=== PATIENT | female | born 1965 | race Caucasian/White ===

== ENCOUNTER → 2017-08-03 | Outpatient (CLI) | payer OTHER | END | disposition home or self-care (01) | LOC: KCIC DEXA 15:18 | DX: Z12.31 Encounter for screening mammogram for malignant neoplasm of breast (principal); Z13.820 Encounter for screening for osteoporosis; M85.88 Other specified disorders of bone density and structure, other site | CPT/HCPCS: 77067; 77080 ==

== ENCOUNTER → 2017-08-18 | Outpatient (CLI) | payer OTHER | END | disposition home or self-care (01) | LOC: KCIC US 12:16 | DX: R92.8 Other abnormal and inconclusive findings on diagnostic imaging of breast (principal) | CPT/HCPCS: 76641 ==

== ENCOUNTER → 2017-08-26 | Day surgery (SDC) | payer OTHER ==
[~2017-08-26] MED LIST: LIDOCAINE 1% PF 2 ML VIAL. ID; LIDOCAINE 2% PF Vial for OR 5 ML VIAL.; MORPHINE SULFATE 2 MG/ML DISP.SYRIN. IV; ONDANSETRON PF 4 MG/2 ML VIAL. IV; PROCHLORPERAZINE 10 MG/2 ML VIAL. IV; PROPOFOL 20 ML IV; fentaNYL PF VIAL 100 MCG/2 ML VIAL IV
[2017-08-26] MEDS: IV RINGERS,LACTATED 1000ML 1,000 ML IV (08:03)
== END | disposition home or self-care (01) ==
LOC: ENDOS 07:14
DX: Z12.11 Encounter for screening for malignant neoplasm of colon (principal); K64.0 First degree hemorrhoids; Z98.84 Bariatric surgery status; Z90.710 Acquired absence of both cervix and uterus; Z90.79 Acquired absence of other genital organ(s); Z90.721 Acquired absence of ovaries, unilateral; Z98.890 Other specified postprocedural states
CPT/HCPCS: 45378; J2001; J2704

== ENCOUNTER → 2018-02-24 | Outpatient (CLI) | payer OTHER ==
[2017-08-26 09:35] VITALS: BP 117/65
[~2018-02-24] MED LIST changes: +CALC-614 PO; +CYAN250012 PO; -LIDOCAINE 1% PF 2 ML VIAL. ID; -LIDOCAINE 2% PF Vial for OR 5 ML VIAL.; -MORPHINE SULFATE 2 MG/ML DISP.SYRIN. IV; +MULT1TAB52 PO; -ONDANSETRON PF 4 MG/2 ML VIAL. IV; -PROCHLORPERAZINE 10 MG/2 ML VIAL. IV; -PROPOFOL 20 ML IV; -fentaNYL PF VIAL 100 MCG/2 ML VIAL IV
--- NOTE | 2018-02-24 15:53 | KCIC ---
Exam performed: Ultrasound right breast and axilla. HISTORY: Follow-up abnormality seen in the right breast DATE OF SERVICE: 02/24/2018. Comparison made to a right breast ultrasound from 08/18/2017. Discussion: Previously seen 1.1 cm fibroadenoma at 9:30 o'clock position in the right breast is no longer visualized. No additional solid or cystic mass lesions are seen. Normal-appearing lymph nodes are seen in the right axilla. IMPRESSION: Previously seen fibroadenoma in the right breast at 9:30 o'clock position is not definitely visualized. No abnormal right axillary lymph nodes are identified. Patient may return to her annual screening mammography in 6 months. BI-RADS Category 2: Benign. Patient was entered into the reminder system using [employer] with a target due date for next screening mammogram "Our facility is accredited by the [employer] Mammography Program." Electronically signed by: Rebecca Akins MD (02/24/2018 3:49 PM) [id number]
== END | disposition home or self-care (01) ==
LOC: KCIC US 14:31
PROVIDERS: ATTEND Physician Assistant Surgical
DX: D24.1 Benign neoplasm of right breast (principal)
CPT/HCPCS: 76641